=== PATIENT | female | born 1990 | race Caucasian/White ===

== ENCOUNTER → 2016-07-04 | Outpatient (CLI) | payer OTHER | LOC: MW.CHOBGYN 16:33 | PROVIDERS: ATTEND Nurse Practitioner Women's Health | DX: Z34.90 Encounter for supervision of normal pregnancy, unspecified, unspecified trimester (principal) | CPT/HCPCS: 87081 ==

== ENCOUNTER 2016-08-04 15:57 | Inpatient (IN) | payer OTHER ==
[2016-08-04] MEDS ORDERED: Sodium Chloride 0.9% 10 ML Syringe FLUSH PRN (18:21)
[2016-08-04] MEDS ORDERED: Sodium Chloride 0.9% 2.5 ML Syringe FLUSH PRN (18:21)
[2016-08-04] MEDS ORDERED: ceFAZolin 2 GM in Premix Bag 1 BAG IV ONE (18:21)
[2016-08-04] MEDS ORDERED: Citric Acid/Sodium Citrate Solution 30 ML Cup PO SCH (18:30)
[2016-08-04] MEDS ORDERED: Ondansetron 4 MG/2 ML SDV ONE (18:32)
[2016-08-04] MEDS ORDERED: Oxytocin 10 Units/1 ML SDV ONE (18:32)
[2016-08-04] MEDS ORDERED: Morphine PF 10 MG/10 ML SDV ONE (18:32)
[2016-08-04] MEDS: Lactated Ringers 1,000 ML IV SCH ×2 (18:35→19:22)
--- NOTE | 2016-08-04 19:06 | PCM.PREANE ---
Preanesthetic Assessment - Anesthesia/Transfusion/Family Hx Anesthesia History: Prior Anesthesia Without Reaction Family History of Anesthesia Reaction: No Intubation History: Unknown - Review of Systems General: No Symptoms Pulmonary: No Symptoms Cardiovascular: No Symptoms Gastrointestinal: No symptoms Neurological: No Symptoms Other: Reports: None - Physical Assessment NPO Status Date: 08/04/16 NPO Status Time: 16:00 (600mL H2O with NST) Height: 5 ft 6 in Weight: 164 lb ASA Class: 2E Mental Status: Alert & Oriented x3 Airway Class: Mallampati = 2 Dentition: Reports: Normal Dentition Thyro-Mental Finger Breadths: 3 Mouth Opening Finger Breadths: 3 ROM/Head Extension: Full Lungs: Clear to auscultation, Normal respiratory effort Cardiovascular: Regular Rate, Regular Rhythm - Lab Values: Laboratory Last Values WBC 12.38 K/uL (4.0-11.0) H 08/04/16 18:29 RBC 4.61 M/uL (4.30-5.90) 08/04/16 18:29 Hgb 13.7 g/dL (12.0-16.0) 08/04/16 18:29 Hct 40.5 % (36.0-46.0) 08/04/16 18:29 MCV 87.9 fL (80.0-98.0) 08/04/16 18:29 MCH 29.7 pg (27.0-32.0) 08/04/16 18:29 MCHC 33.8 g/dL (31.0-37.0) 08/04/16 18:29 RDW Std Deviation 43.8 fl (28.0-62.0) 08/04/16 18:29 RDW Coeff of Jimmie 14 % (11.0-15.0) 08/04/16 18:29 Plt Count 189 K/uL (150-400) 08/04/16 18:29 MPV 10.00 fL (7.40-12.00) 08/04/16 18:29 Nucleated RBC % 0.0 /100WBC 08/04/16 18:29 Nucleated RBCs # 0 K/uL 08/04/16 18:29 - Allergies Allergies/Adverse Reactions: Allergies Allergy/AdvReac Type Severity Reaction Status Date / Time No Known Allergies Allergy Verified 08/04/16 18:20 - Blood Blood Available: No Product(s) Available: None - Anesthesia Plan Free Text/Narrative:: Planned SAB with GETA backup. Pt does have a support services tech with her and ok' d with Dr Muñoz that she be in the room for - she does understand the rules and verbalizes understanding. 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: - Past Surgical History Female Surgical History: Reports: section - SUBSTANCE USE Smoking Status *Q: Never Smoker Second Hand Smoke Exposure: No Recreational Drug Use History: No - CURRENT (IN HOUSE) MEDS Current Meds: Current Medications Citric Acid/Sodium Citrate (Bicitra Solution) 30 ml PO .ONCE TREVER Lactated Ringer's (Ringers, Lactated) 1,000 mls @ 500 mls/hr IV .BOLUS TREVER Last Admin: 08/04/16 18:35 Dose: 500 mls/hr Sodium Chloride (Saline Flush) 10 ml FLUSH ASDIRECTED PRN PRN Reason: Keep Vein Open Sodium Chloride (Saline Flush) 2.5 ml FLUSH ASDIRECTED PRN PRN Reason: Keep Vein Open Discontinued Medications Cefazolin Sodium/Dextrose 2 gm (/ Premix) 50 mls @ 100 mls/hr IV ONETIME ONE Stop: 08/04/16 18:50 Morphine Sulfate (Duramorph Pf) Confirm Administered Dose 10 mg .ROUTE .STK-MED ONE Stop: 08/04/16 18:33 Ondansetron HCl (Zofran) Confirm Administered Dose 4 mg .ROUTE .STK-MED ONE Stop: 08/04/16 18:33 Oxytocin (Pitocin) Confirm Administered Dose 20 unit .ROUTE .STK-MED ONE Stop: 08/04/16 18:33 Preanesthetic Assessment - PHYSICAL ASSESSMENT Height: 5 ft 6 in Weight: 164 lb - LAB Values: Laboratory Last Values WBC 12.38 K/uL (4.0-11.0) H 08/04/16 18:29 RBC 4.61 M/uL (4.30-5.90) 08/04/16 18:29 Hgb 13.7 g/dL (12.0-16.0) 08/04/16 18: Hct 40.5 % (36.0-46.0) 08/04/16 18: MCV 87.9 fL (80.0-98.0) 08/04/16 18: MCH 29.7 pg (27.0-32.0) 08/04/16 18: MCHC 33.8 g/dL (31.0-37.0) 08/04/16 18: RDW Std Deviation 43.8 fl (28.0-62.0) 08/04/16 18: RDW Coeff of Jimmie 14 % (11.0-15.0) 08/04/16 18: Plt Count 189 K/uL (150-400) 08/04/16 18: MPV 10.00 fL (7.40-12.00) 08/04/16 18: Nucleated RBC % 0.0 /100WBC 08/04/16 18: Nucleated RBCs # 0 K/uL 08/04/16 18:29 - ALLERGIES Allergies/Adverse Reactions: Allergies Allergy/AdvReac Type Severity Reaction Status Date / Time No Known Allergies Allergy Verified 08/04/16 18:20
[2016-08-04] MEDS ORDERED: Octyl 2-Cyanoacrylate 1 Tube ONE (19:18)
[2016-08-04] MEDS ORDERED: fentaNYL 100 MCG/2 ML SDV IVPUSH PRN (20:18)
[2016-08-04] MEDS ORDERED: Acetaminophen/oxyCODONE 325-5 MG Tab PO PRN ×3 (20:18→20:44)
[2016-08-04] MEDS ORDERED: Nalbuphine 10 MG/1 ML Vial IVPUSH PRN (20:18)
--- NOTE | 2016-08-04 20:43 | PCM.LDHP ---
L&D History of Present Illness - General Date of Service: 08/04/16 Admit Problem/Dx: Patient Status Order with Admit Dx/Problem 08/04/16 15:59 Patient Status [ADT] Routine 08/04/16 18:21 Patient Status [ADT] Routine Admission Diagnosis/Problem Admission Diagnosis/Problem -related examination Source of Information: Patient History Limitations: Reports: No limitations - History of Present Illness Improves with: Reports: None Worsens with: Reports: None Associated Symptoms: Reports: N - Related Data Allergies/Adverse Reactions: Allergies Allergy/AdvReac Type Severity Reaction Status Date / Time No Known Allergies Allergy Verified 08/04/16 18:20 Past Medical History - Past Health History Medical/Surgical History: Denies 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: - Past Surgical History Female Surgical History: Reports: section Social & Family History - Family History Family Medical History: Noncontributory - Tobacco Use Smoking Status *Q: Never Smoker Second Hand Smoke Exposure: No - Caffeine Use Caffeine Use: Reports: Coffee - Recreational Drug Use Recreational Drug Use: No H&P Review of Systems - Review of Systems: Review Of Systems: See Below General: Reports: no symptoms HEENT: Reports: no symptoms Pulmonary: Reports: No Symptoms Cardiovascular: Reports: no symptoms Gastrointestinal: Reports: No symptoms Genitourinary: Reports: no symptoms Musculoskeletal: Reports: no symptoms Skin: Reports: no symptoms Psychiatric: Reports: no symptoms Neurological: Reports: No Symptoms Hematologic/Lymphatic: Reports: no symptoms Immunologic: Reports: no symptoms L&D Exam - Exam Exam: See Below - Vital Signs Weight: 74.389 kg - OB Specific Fundal Height in cm: 38 Contraction Intensity: Mild movement: active heart tones: present Presentation: Vertex - Patient Data Lab Results last 24 hrs: Laboratory Results - last 24 hr 08/04/16 08/04/16 Range/Units 18:29 18:29 WBC 12.38 H (4.0-11.0) K/uL RBC 4.61 (4.30-5.90) M/uL Hgb 13.7 (12.0-16.0) g/dL Hct 40.5 (36.0-46.0) % MCV 87.9 (80.0-98.0) fL MCH 29.7 (27.0-32.0) pg MCHC 33.8 (31.0-37.0) g/dL RDW Std Deviation 43.8 (28.0-62.0) fl RDW Coeff of Jimmie 14 (11.0-15.0) % Plt Count 189 (150-400) K/uL MPV 10.00 (7.40-12.00) fL Nucleated RBC % 0.0 /100WBC Nucleated RBCs # 0 K/uL Blood Type A NEGATIVE Antibody Screen NEGATIVE Result Diagrams: 08/04/16 18:29 Problem List Initiated/Reviewed/Updated: Yes Orders Last 24hrs: Active Orders 24 hr Category Date Time Status Patient Status [ADT] Routine ADT 08/04/16 18:21 Active Bradycardia-Neuroaxis [employer] [RC] ROUTINE Care 08/04/16 20:18 Active Non Stress Test [RC] PER UNIT ROUTINE Care 08/04/16 18:21 Active Hypertension-Neuroaxis [employer] [RC] ROUTINE Care 08/04/16 20:18 Active Hypotension-Neuroaxis [employer] [RC] ROUTINE Care 08/04/16 20:18 Active Notify Provider Vital Signs [RC] PRN Care 08/04/16 18:22 Active Oxygen Therapy [RC] PER UNIT ROUTINE Care 08/04/16 20:18 Active Procedure Site Prep Instruct [RC] ASDIRECTED Care 08/04/16 18:21 Active Up ad Diana [RC] ASDIRECTED Care 08/04/16 15:59 Active Up ad Diana [RC] ASDIRECTED Care 08/04/16 18:21 Active Verify Patient Consent Obtain [RC] ASDIRECTED Care 08/04/16 18:21 Active Vital Signs [RC] PER UNIT ROUTINE Care 08/04/16 15:59 Active Vital Signs [RC] PER UNIT ROUTINE Care 08/04/16 18:21 Active Vital Signs [RC] Q1H Care 08/04/16 20:18 Active Acetaminophen/oxyCODONE [Percocet 325-5 MG] Med 08/04/16 20:18 Active 2 tab PO ONETIME PRN Citric Acid/Sodium Citrate [Bicitra Solution] Med 08/04/16 18:30 Active 30 ml PO .ONCE Lactated Ringers [Ringers, Lactated] 1,000 ml Med 08/04/16 18:30 Active IV .BOLUS Nalbuphine [Nubain] Med 08/04/16 20:18 Active 2.5 mg IVPUSH Q3H PRN Sodium Chloride 0.9% [Saline Flush] Med 08/04/16 18:21 Active 10 ml FLUSH ASDIRECTED PRN Sodium Chloride 0.9% [Saline Flush] Med 08/04/16 18:21 Active 2.5 ml FLUSH ASDIRECTED PRN fentaNYL [Sublimaze] Med 08/04/16 20:18 Active 50 mcg IVPUSH Q5M PRN AN Neuroaxis [employer] Precaution Reflex [OM.PC] PER Oth 08/04/16 20:30 Ordered UNIT ROUTINE AN Neuroaxis [employer] Precaution Reflex [OM.PC] PER Oth 08/05/16 20:30 Ordered UNIT ROUTINE Peripheral IV Insertion Adult [OM.PC] Routine Oth 08/04/16 18:21 Ordered Schedule Procedure [COMM] Per Unit Routine Oth 08/04/16 18:21 Ordered Resuscitation Status Routine Resus Stat 08/04/16 15:59 Ordered Medication Orders Citric Acid/Sodium Citrate (Bicitra Solution) 30 ml PO .ONCE TREVER Fentanyl (Sublimaze) 50 mcg IVPUSH Q5M PRN PRN Reason: Pain (severe 7-10) Stop: 08/05/16 20:19 Lactated Ringer's (Ringers, Lactated) 1,000 mls @ 500 mls/hr IV .BOLUS TREVER Last Admin: 08/04/16 19:22 Dose: 500 mls/hr Infusion: 08/04/16 19:22 Dose: 500 mls/hr Admin: 08/04/16 18:35 Dose: 500 mls/hr Nalbuphine HCl (Nubain) 2.5 mg IVPUSH Q3H PRN PRN Reason: Pruritis Stop: 08/05/16 20:19 Oxycodone/Acetaminophen (Percocet 325-5 Mg) 2 tab PO ONETIME PRN PRN Reason: Pain (moderate 4-6) Sodium Chloride (Saline Flush) 10 ml FLUSH ASDIRECTED PRN PRN Reason: Keep Vein Open Sodium Chloride (Saline Flush) 2.5 ml FLUSH ASDIRECTED PRN PRN Reason: Keep Vein Open Assessment/Plan Comment:: Admit for elective repear C/section.
[2016-08-04] MEDS ORDERED: Ondansetron 4 MG/2 ML SDV IV PRN (20:44)
[2016-08-04] MEDS ORDERED: Ibuprofen 800 MG Tab PO PRN (20:44)
[2016-08-04] MEDS ORDERED: Lanolin 100% Cream 7 GM Tube TOP PRN (20:44)
[2016-08-04] MEDS ORDERED: Bisacodyl 10 MG Supp RECTAL PRN (20:44)
[2016-08-04] MEDS ORDERED: diphenhydrAMINE 50 MG/ML SDV IVPUSH PRN (20:44)
--- NOTE | 2016-08-04 20:44 | PCM.OPNOTE ---
- General Post-Op/Procedure Note Date of Surgery/Procedure: 08/04/16 Pre Op Diagnosis: Term elective repeat C/section Post-Op Diagnosis: Same Primary Surgeon: Tip Muñoz Complications: None Condition: Good
[2016-08-04] MEDS ORDERED: Lactated Ringers 1,000 ML IV SCH (20:45)
[2016-08-04] MEDS ORDERED: Naloxone 0.4 MG/ML Syringe IVPUSH PRN (20:54)
[2016-08-04] MEDS: Ketorolac 30 MG/ML SDV IVPUSH SCH (21:05)
--- NOTE | 2016-08-04 21:07 | PCM.POSTAN ---
POST ANESTHESIA ASSESSMENT - MENTAL STATUS Mental Status: alert, oriented - RESPIRATORY Respiratory Status: respiratory rate WNL, airway patent, O2 saturation stable - CARDIOVASCULAR CV Status: pulse rate WNL, blood pressure stable - GASTROINTESTINAL GI Status: no symptoms - PAIN Pain Score: 2 ("slightly uncomfortable") - POST OP HYDRATION Hydration Status: adequate & stable - OBSERVATIONS Free Text/Narrative:: Pt currently in PACU. VSS. Stable for discharge to Phase II on OB when appropriate.
[2016-08-04] MEDS: Docusate Sodium 100 MG Cap PO SCH (23:13)
--- NOTE | 2016-08-04 23:18 | OR ---
SURGEON: Tip Muñoz MD DATE OF PROCEDURE: PREOPERATIVE DIAGNOSIS: Postdate , almost 41 weeks, previous cesarian section, nonreassuring nonstress test. POSTOPERATIVE DIAGNOSIS: Postdate , almost 41 weeks, previous cesarian section, nonreassuring nonstress test. OPERATION PERFORMED: Repeat low transverse section. PRESIDENT FINANCIAL INSTITUTION/ASSISTANT CHIEF TRAIN DISPATCHER: Dr. Swift. ANESTHESIA: Spinal. ANESTHESIOLOGIST: Gerri Maravilla and Dr. Pierson. ESTIMATED BLOOD LOSS: 700 mL. COMPLICATIONS: None. FINDINGS: Female fetus. score reported to be 9 and 9. The weight is not available at this time. INDICATION: Patient primarily is being followed by our nurse vamp liner. She had previous section for breech. She was going to try for vaginal , however, she became postdate with no evidence of labor. I saw her in the office today and she is scheduled for repeat section next Thursday on August 08. The patient is sent for nonstress test and nonstress test shows a nonreassuring nonstress test. tachycardia and some variable deceleration, so a decision was made to repeat her section today. PROCEDURE IN DETAIL: The patient was brought to the OR, properly identified. After adequate level of spinal anesthesia with a Willoughby catheter in the bladder. The patient prepped and draped in sterile fashion as usual. Low transverse Pfannenstiel skin incision was done. The Rowdy's fascia, rectus fascia was opened in direction of the incision. The 2 recti muscles were and peritoneal cavity was entered. Bladder flap was raised in the usual manner pushing the bladder away from the lower uterine segment. Low transverse uterine incision done and extended manually and fetus was delivered. Dr. Swift attended the section and he resuscitated the baby. The score reported to be 9 and 9. The placenta delivered spontaneous, complete, and intact. End to end repair of the lower uterine segment was done with 2-0 Vicryl continuous interlocking in 2 layers. Reperitonealization done with 3-0 Vicryl continuous and then the peritoneal cavity evacuated completely from all blood and blood clot and closed with 3-0 Vicryl continuous. The rectus fascia closed with #1 PDS continuous and the Rowdy's fascia with 3-0 Vicryl continuous and skin was closed with skin clips, Insorb, and Dermabond. Instrument and sponge count was correct. The patient tolerated the procedure well, went to recovery room in stable general condition. CHARLIE PALACIOS /[id number]
[2016-08-05] MEDS: Ketorolac 30 MG/ML SDV IVPUSH SCH ×4 (02:55→21:02)
--- NOTE | 2016-08-05 08:12 | PCM48HPAN ---
Post Anesthesia Note - EVALUATION WITHIN 48HRS OF ANESTHETIC Vital Signs in Normal Range: Yes Patient Participated in Evaluation: Yes Respiratory Function Stable: Yes Airway Patent: Yes Cardiovascular Function Stable: Yes Hydration Status Stable: Yes Pain Control Satisfactory: Yes Nausea and Vomiting Control Satisfactory: Yes Mental Status Recovered: Yes - COMMENTS/OBSERVATIONS Free Text/Narrative:: Pt sitting up in bed this AM and states pain well controlled overnight and no nausea or pruritis. No apparent anesthesia complications.
[2016-08-05] MEDS: Docusate Sodium 100 MG Cap PO SCH ×2 (09:03→21:03)
--- NOTE | 2016-08-05 12:52 | PCM.PNPP ---
- General Info Date of Service: 08/05/16 Functional Status: Reports: pain controlled - Review of Systems General: Reports: No Symptoms HEENT: Reports: no symptoms Pulmonary: Reports: no symptoms Cardiovascular: Reports: No Symptoms Gastrointestinal: Reports: No symptoms Genitourinary: Reports: no symptoms Musculoskeletal: Reports: no symptoms Skin: Reports: no symptoms Neurological: Reports: No Symptoms Psychiatric: Reports: no symptoms - General Info Date of Service: 08/05/16 - Patient Data Vital Signs - most recent: Last Vital Signs Temp 36.6 C 08/05/16 07:45 Pulse 86 08/05/16 10:00 Resp 18 08/05/16 10:00 BP 109/69 08/05/16 07:45 Pulse Ox 92 L 08/05/16 10:00 Weight - most recent: 74.389 kg I&O - last 24 hours: Intake & Output 08/04/16 08/05/16 08/05/16 22:59 06:59 14:59 Intake Total 1950 1604 Output Total 800 1440 745 Balance 1150 164 -745 Lab Results - last 24 hrs: Laboratory Results - last 24 hr 08/04/16 08/04/16 08/04/16 Range/Units 18:29 18:29 22:37 WBC 12.38 H (4.0-11.0) K/uL RBC 4.61 (4.30-5.90) M/uL Hgb 13.7 (12.0-16.0) g/dL Hct 40.5 (36.0-46.0) % MCV 87.9 (80.0-98.0) fL MCH 29.7 (27.0-32.0) pg MCHC 33.8 (31.0-37.0) g/dL RDW Std Deviation 43.8 (28.0-62.0) fl RDW Coeff of Jimmie 14 (11.0-15.0) % Plt Count 189 (150-400) K/uL MPV 10.00 (7.40-12.00) fL Nucleated RBC % 0.0 /100WBC Nucleated RBCs # 0 K/uL Blood Type A NEGATIVE Antibody Screen NEGATIVE Screen NEGATIVE RhIG Candidate? YES Rhogam Indicated YES, BABY RH POS H 08/05/16 Range/Units 06:10 WBC (4.0-11.0) K/uL RBC (4.30-5.90) M/uL Hgb 12.4 (12.0-16.0) g/dL Hct 35.7 L (36.0-46.0) % MCV (80.0-98.0) fL MCH (27.0-32.0) pg MCHC (31.0-37.0) g/dL RDW Std Deviation (28.0-62.0) fl RDW Coeff of Jimmie (11.0-15.0) % Plt Count (150-400) K/uL MPV (7.40-12.00) fL Nucleated RBC % /100WBC Nucleated RBCs # K/uL Blood Type Antibody Screen Screen RhIG Candidate? Rhogam Indicated Med Orders - Current: Current Medications Bisacodyl (Dulcolax) 10 mg RECTAL .ONCE PRN PRN Reason: Constipation Citric Acid/Sodium Citrate (Bicitra Solution) 30 ml PO .ONCE TREVER Diphenhydramine HCl (Benadryl) 25 mg IVPUSH Q6H PRN PRN Reason: Itching or Nausea Docusate Sodium (Colace) 100 mg PO BID [facility] Last Admin: 08/05/16 09:03 Dose: 100 mg Emollient Ointment (Lansinoh Hpa) 0 gm TOP ASDIRECTED PRN PRN Reason: Sore Nipples Fentanyl (Sublimaze) 50 mcg IVPUSH Q5M PRN PRN Reason: Pain (severe 7-10) Stop: 08/05/16 20:19 Last Admin: 08/05/16 00:25 Dose: 50 mcg Lactated Ringer's (Ringers, Lactated) 1,000 mls @ 500 mls/hr IV .BOLUS [facility] Last Admin: 08/04/16 19:22 Dose: 500 mls/hr Lactated Ringer's (Ringers, Lactated) 1,000 mls @ 125 mls/hr IV ASDIRECTED [facility] Last Admin: 08/04/16 22:45 Dose: 125 mls/hr Ibuprofen (Motrin) 800 mg PO Q8H PRN PRN Reason: mild pain or fever Ketorolac Tromethamine (Toradol) 30 mg IVPUSH Q6H [facility] Stop: 08/05/16 20:46 Last Admin: 08/05/16 09:04 Dose: 30 mg Nalbuphine HCl (Nubain) 2.5 mg IVPUSH Q3H PRN PRN Reason: Pruritis Stop: 08/05/16 20:19 Naloxone HCl (Narcan) 0.1 mg IVPUSH ONETIME PRN PRN Reason: If RR<6 WITH STIMULATION Stop: 08/05/16 20:00 Ondansetron HCl (Zofran) 4 mg IV Q4H PRN PRN Reason: Nausea/Vomiting Oxycodone/Acetaminophen (Percocet 325-5 Mg) 2 tab PO ONETIME PRN PRN Reason: Pain (moderate 4-6) Oxycodone/Acetaminophen (Percocet 325-5 Mg) 1 tab PO Q4H PRN PRN Reason: Pain (moderate 4-6) Oxycodone/Acetaminophen (Percocet 325-5 Mg) 2 tab PO Q4H PRN PRN Reason: Pain (moderate 4-6) Sodium Chloride (Saline Flush) 10 ml FLUSH ASDIRECTED PRN PRN Reason: Keep Vein Open Sodium Chloride (Saline Flush) 2.5 ml FLUSH ASDIRECTED PRN PRN Reason: Keep Vein Open Discontinued Medications Cefazolin Sodium/Dextrose 2 gm (/ Premix) 50 mls @ 100 mls/hr IV ONETIME ONE Stop: 08/04/16 18:50 Last Admin: 08/04/16 20:19 Dose: Not Given Morphine Sulfate (Duramorph Pf) Confirm Administered Dose 10 mg .ROUTE .STK-MED ONE Stop: 08/04/16 18:33 Octyl Cyanoacrylate (Dermabond Advance) Confirm Administered Dose 1 applic .ROUTE .STK-MED ONE Stop: 08/04/16 19:19 Ondansetron HCl (Zofran) Confirm Administered Dose 4 mg .ROUTE .STK-MED ONE Stop: 08/04/16 18:33 Oxytocin (Pitocin) Confirm Administered Dose 20 unit .ROUTE .STK-MED ONE Stop: 08/04/16 18:33 - Interaction Interaction: Holding Infant Infant Feeding: Attempted ; Nursed Fair/Poor Support Person: - Recovery Exam Fundal Tone: Firm Fundal Level: 2 Fingerbreadths Below Umbilicus Fundal Placement: Midline Lochia Amount: Scant Lochia Color: Rubra/Red Perineum Description: Intact, Minimal Bruising/Swelling Episiotomy/Laceration: None Bladder Status: Nonpalpable Urinary Elimination: Indwelling Catheter - Exam General: alert, oriented HEENT: Pupils equal Neck: supple Lungs: Clear to auscultation, Normal respiratory effort Cardiovascular: Regular Rate, Regular Rhythm Abdomen: bowel sounds present, soft, no tenderness, no distension Extremities: no edema Skin: warm, dry, intact Wound/Incisions: healing well Neurological: no new focal deficit Psy/Mental Status: alert, normal affect, normal mood - Problem List Review Problem List Initiated/Reviewed/Updated: Yes - My Orders Last 24 Hours: My Active Orders 08/04/16 15:59 Vital Signs [RC] PER UNIT ROUTINE Resuscitation Status Routine 08/04/16 18:21 Procedure Site Prep Instruct [RC] ASDIRECTED Up ad Diana [RC] ASDIRECTED Verify Patient Consent Obtain [RC] ASDIRECTED Vital Signs [RC] PER UNIT ROUTINE Sodium Chloride 0.9% [Saline Flush] 10 ml FLUSH ASDIRECTED PRN Sodium Chloride 0.9% [Saline Flush] 2.5 ml FLUSH ASDIRECTED PRN Peripheral IV Insertion Adult [OM.PC] Routine Schedule Procedure [COMM] Per Unit Routine 08/04/16 18:22 Notify Provider Vital Signs [RC] PRN 08/04/16 18:30 Citric Acid/Sodium Citrate [Bicitra Solution] 30 ml PO .ONCE Lactated Ringers [Ringers, Lactated] 1,000 ml IV .BOLUS 08/04/16 20:44 Patient Status [ADT] Routine Ambulate [RC] PER UNIT ROUTINE Communication Order [RC] PER UNIT ROUTINE Communication Order [RC] PER UNIT ROUTINE Communication Order [RC] Per Unit Routine May Shower [RC] ASDIRECTED RT Incentive Spirometry [RC] Q2HWA Vital Signs [RC] PER UNIT ROUTINE Acetaminophen/oxyCODONE [Percocet 325-5 MG] 1 tab PO Q4H PRN Acetaminophen/oxyCODONE [Percocet 325-5 MG] 2 tab PO Q4H PRN Bisacodyl [Dulcolax] 10 mg RECTAL .ONCE PRN Ibuprofen [Motrin] 800 mg PO Q8H PRN Lanolin [Lansinoh HPA] See Dose Instructions TOP ASDIRECTED PRN Ondansetron [Zofran] 4 mg IV Q4H PRN diphenhydrAMINE [Benadryl] 25 mg IVPUSH Q6H PRN Assess Lochia [WOMSER] Per Unit Routine Assess Uterine Involution [WOMSER] Per Unit Routine Breast Pump [WOMSER] Per Unit Routine Peripheral IV Discontinue [OM.PC] Routine Sequential Compression Device [OM.PC] Per Unit Routine 08/04/16 20:45 Antiembolic Devices [RC] PER UNIT ROUTINE Ketorolac [Toradol] 30 mg IVPUSH Q6H Lactated Ringers [Ringers, Lactated] 1,000 ml IV ASDIRECTED 08/04/16 21:00 Docusate Sodium [Colace] 100 mg PO BID 08/05/16 Breakfast Regular Diet [DIET] - Plan Plan:: Admit for elective repear C/section.
[2016-08-06] MEDS: Docusate Sodium 100 MG Cap PO SCH (08:17)
--- NOTE | 2016-08-06 08:30 | PCM.PNPP ---
- General Info Date of Service: 08/06/16 Functional Status: Reports: pain controlled - Review of Systems General: Reports: No Symptoms HEENT: Reports: no symptoms Pulmonary: Reports: no symptoms Cardiovascular: Reports: No Symptoms Gastrointestinal: Reports: No symptoms Genitourinary: Reports: no symptoms Musculoskeletal: Reports: no symptoms Skin: Reports: no symptoms Neurological: Reports: No Symptoms Psychiatric: Reports: no symptoms - General Info Date of Service: 08/06/16 - Patient Data Vital Signs - most recent: Last Vital Signs Temp 36.4 C 08/06/16 04:30 Pulse 82 08/06/16 04:30 Resp 16 08/06/16 04:30 BP 117/70 08/06/16 04:30 Pulse Ox 94 L 08/06/16 04:30 Weight - most recent: 74.389 kg I&O - last 24 hours: Intake & Output 08/05/16 08/06/16 08/06/16 22:59 06:59 14:59 Output Total 900 Balance -900 Med Orders - Current: Current Medications Bisacodyl (Dulcolax) 10 mg RECTAL .ONCE PRN PRN Reason: Constipation Citric Acid/Sodium Citrate (Bicitra Solution) 30 ml PO .ONCE TREVER Diphenhydramine HCl (Benadryl) 25 mg IVPUSH Q6H PRN PRN Reason: Itching or Nausea Docusate Sodium (Colace) 100 mg PO BID [facility] Last Admin: 08/06/16 08:17 Dose: 100 mg Emollient Ointment (Lansinoh Hpa) 0 gm TOP ASDIRECTED PRN PRN Reason: Sore Nipples Lactated Ringer's (Ringers, Lactated) 1,000 mls @ 500 mls/hr IV .BOLUS [facility] Last Admin: 08/04/16 19:22 Dose: 500 mls/hr Lactated Ringer's (Ringers, Lactated) 1,000 mls @ 125 mls/hr IV ASDIRECTED [facility] Last Admin: 08/04/16 22:45 Dose: 125 mls/hr Ibuprofen (Motrin) 800 mg PO Q8H PRN PRN Reason: mild pain or fever Last Admin: 08/06/16 04:44 Dose: 800 mg Ondansetron HCl (Zofran) 4 mg IV Q4H PRN PRN Reason: Nausea/Vomiting Oxycodone/Acetaminophen (Percocet 325-5 Mg) 2 tab PO ONETIME PRN PRN Reason: Pain (moderate 4-6) Oxycodone/Acetaminophen (Percocet 325-5 Mg) 1 tab PO Q4H PRN PRN Reason: Pain (moderate 4-6) Oxycodone/Acetaminophen (Percocet 325-5 Mg) 2 tab PO Q4H PRN PRN Reason: Pain (moderate 4-6) Sodium Chloride (Saline Flush) 10 ml FLUSH ASDIRECTED PRN PRN Reason: Keep Vein Open Sodium Chloride (Saline Flush) 2.5 ml FLUSH ASDIRECTED PRN PRN Reason: Keep Vein Open Discontinued Medications Fentanyl (Sublimaze) 50 mcg IVPUSH Q5M PRN PRN Reason: Pain (severe 7-10) Stop: 08/05/16 20:19 Last Admin: 08/05/16 00:25 Dose: 50 mcg Cefazolin Sodium/Dextrose 2 gm (/ Premix) 50 mls @ 100 mls/hr IV ONETIME ONE Stop: 08/04/16 18:50 Last Admin: 08/04/16 20:19 Dose: Not Given Ketorolac Tromethamine (Toradol) 30 mg IVPUSH Q6H TREVER Stop: 08/05/16 20:46 Last Admin: 08/05/16 21:02 Dose: 30 mg Morphine Sulfate (Duramorph Pf) Confirm Administered Dose 10 mg .ROUTE .STK-MED ONE Stop: 08/04/16 18:33 Nalbuphine HCl (Nubain) 2.5 mg IVPUSH Q3H PRN PRN Reason: Pruritis Stop: 08/05/16 20:19 Naloxone HCl (Narcan) 0.1 mg IVPUSH ONETIME PRN PRN Reason: If RR<6 WITH STIMULATION Stop: 08/05/16 20:00 Octyl Cyanoacrylate (Dermabond Advance) Confirm Administered Dose 1 applic .ROUTE .STK-MED ONE Stop: 08/04/16 19:19 Ondansetron HCl (Zofran) Confirm Administered Dose 4 mg .ROUTE .STK-MED ONE Stop: 08/04/16 18:33 Oxytocin (Pitocin) Confirm Administered Dose 20 unit .ROUTE .STK-MED ONE Stop: 08/04/16 18:33 - Interaction Infant Interaction: Holding Feeding: Attempted ; Nursed Fair/Poor Support Person: - Recovery Exam Fundal Tone: Firm Fundal Level: 2 Fingerbreadths Below Umbilicus Fundal Placement: Midline Lochia Amount: Scant Lochia Color: Rubra/Red Perineum Description: Intact, Minimal Bruising/Swelling Episiotomy/Laceration: None Bladder Status: Voiding Urinary Elimination: Indwelling Catheter - Exam General: alert, oriented HEENT: Pupils equal Neck: supple Lungs: Clear to auscultation, Normal respiratory effort Cardiovascular: Regular Rate, Regular Rhythm Abdomen: bowel sounds present, soft, no tenderness, no distension Extremities: no edema Skin: warm, dry, intact Wound/Incisions: healing well Neurological: no new focal deficit Psy/Mental Status: alert, normal affect, normal mood - Problem List Review Problem List Initiated/Reviewed/Updated: Yes - Assessment Assessment:: Status post section postoperative day #2 the patient like to go home her incision clean dry she is on regular diet she is passing gas she is voiding without any problem her vital sign was stable. The patient sent home with post prescription for Percocet 7.5/325 for postoperative pain the patient come to the office in 7-10 days for postoperative examination and check - Plan Plan:: Admit for elective repear C/section.
--- NOTE | 2016-08-06 08:31 | PCM.DCSUM1 ---
Discharge Summary - Discharge Data Discharge Date: 08/06/16 Discharge Disposition: Home, Self-Care 01 Condition: Good - Patient Instructions Diet: Usual Diet as Tolerated Activity: As Tolerated Driving: Do Not Drive Showering/Bathing: May Shower Wound/Incision Care: Keep Operative Site/Wound Site Clean and Dry, Do NOT Change Dressing Notify Provider of: Fever, Increased Pain, Swelling and Redness, Drainage, Nausea and/or Vomiting - Discharge Plan - General Info Date of Service: 08/06/16 Functional Status: Reports: pain controlled - Review of Systems General: Reports: No Symptoms HEENT: Reports: no symptoms Pulmonary: Reports: no symptoms Cardiovascular: Reports: No Symptoms Gastrointestinal: Reports: No symptoms Genitourinary: Reports: no symptoms Musculoskeletal: Reports: no symptoms Skin: Reports: no symptoms Neurological: Reports: No Symptoms Psychiatric: Reports: no symptoms - Patient Data Vitals - Most Recent: Last Vital Signs Temp 36.4 C 08/06/16 04:30 Pulse 82 08/06/16 04:30 Resp 16 08/06/16 04:30 BP 117/70 08/06/16 04:30 Pulse Ox 94 L 08/06/16 04:30 Weight - Most Recent: 74.389 kg I&O - Last 24 hours: Intake & Output 08/05/16 08/06/16 08/06/16 22:59 06:59 14:59 Output Total 900 Balance -900 Med Orders - Current: Current Medications Bisacodyl (Dulcolax) 10 mg RECTAL .ONCE PRN PRN Reason: Constipation Citric Acid/Sodium Citrate (Bicitra Solution) 30 ml PO .ONCE TREVER Diphenhydramine HCl (Benadryl) 25 mg IVPUSH Q6H PRN PRN Reason: Itching or Nausea Docusate Sodium (Colace) 100 mg PO BID TREVER Last Admin: 08/06/16 08:17 Dose: 100 mg Emollient Ointment (Lansinoh Hpa) 0 gm TOP ASDIRECTED PRN PRN Reason: Sore Nipples Lactated Ringer's (Ringers, Lactated) 1,000 mls @ 500 mls/hr IV .BOLUS TREVER Last Admin: 08/04/16 19:22 Dose: 500 mls/hr Lactated Ringer's (Ringers, Lactated) 1,000 mls @ 125 mls/hr IV ASDIRECTED TREVER Last Admin: 08/04/16 22:45 Dose: 125 mls/hr Ibuprofen (Motrin) 800 mg PO Q8H PRN PRN Reason: mild pain or fever Last Admin: 08/06/16 04:44 Dose: 800 mg Ondansetron HCl (Zofran) 4 mg IV Q4H PRN PRN Reason: Nausea/Vomiting Oxycodone/Acetaminophen (Percocet 325-5 Mg) 2 tab PO ONETIME PRN PRN Reason: Pain (moderate 4-6) Oxycodone/Acetaminophen (Percocet 325-5 Mg) 1 tab PO Q4H PRN PRN Reason: Pain (moderate 4-6) Oxycodone/Acetaminophen (Percocet 325-5 Mg) 2 tab PO Q4H PRN PRN Reason: Pain (moderate 4-6) Sodium Chloride (Saline Flush) 10 ml FLUSH ASDIRECTED PRN PRN Reason: Keep Vein Open Sodium Chloride (Saline Flush) 2.5 ml FLUSH ASDIRECTED PRN PRN Reason: Keep Vein Open Discontinued Medications Fentanyl (Sublimaze) 50 mcg IVPUSH Q5M PRN PRN Reason: Pain (severe 7-10) Stop: 08/05/16 20:19 Last Admin: 08/05/16 00:25 Dose: 50 mcg Cefazolin Sodium/Dextrose 2 gm (/ Premix) 50 mls @ 100 mls/hr IV ONETIME ONE Stop: 08/04/16 18:50 Last Admin: 08/04/16 20:19 Dose: Not Given Ketorolac Tromethamine (Toradol) 30 mg IVPUSH Q6H [facility] Stop: 08/05/16 20:46 Last Admin: 08/05/16 21:02 Dose: 30 mg Morphine Sulfate (Duramorph Pf) Confirm Administered Dose 10 mg .ROUTE .STK-MED ONE Stop: 08/04/16 18:33 Nalbuphine HCl (Nubain) 2.5 mg IVPUSH Q3H PRN PRN Reason: Pruritis Stop: 08/05/16 20:19 Naloxone HCl (Narcan) 0.1 mg IVPUSH ONETIME PRN PRN Reason: If RR<6 WITH STIMULATION Stop: 08/05/16 20:00 Octyl Cyanoacrylate (Dermabond Advance) Confirm Administered Dose 1 applic .ROUTE .STK-MED ONE Stop: 08/04/16 19:19 Ondansetron HCl (Zofran) Confirm Administered Dose 4 mg .ROUTE .STK-MED ONE Stop: 08/04/16 18:33 Oxytocin (Pitocin) Confirm Administered Dose 20 unit .ROUTE .STK-MED ONE Stop: 08/04/16 18:33 - Exam General: Reports: alert, oriented HEENT: Reports: Pupils equal, Pupils reactive, EOMI, Mucous membr. moist/pink Neck: Reports: supple Lungs: Reports: Clear to auscultation, Normal respiratory effort Cardiovascular: Reports: Regular Rate, Regular Rhythm Abdomen: Reports: bowel sounds present, soft, no tenderness, no distension (Female) Exam: Normal external exam, Normal speculum exam, Normal bimanual exam Rectal (Female) Exam: Normal Exam, Normal rectal tone Back Exam: Reports: normal inspection, full range of motion Extremities: Reports: no edema, normal pulses Skin: Reports: warm, dry, intact Wound/Incisions: Reports: healing well Neurological: Reports: no new focal deficit Psy/Mental Status: Reports: alert, normal affect, normal mood *Q Meaningful Use (DIS) - VTE *Q VTE Criteria *Q: - Stroke *Q Stroke Criteria *Q: - AMI *Q AMI Criteria *Q:
[2016-08-06 09:03] VITALS: BP 125/77
== END 2016-08-06 12:08 | disposition home or self-care (01) | DRG 766 ==
LOC: MW.OBCHECK 15:57 → MW.OB 18:15 → OBSVTOIN 18:21
PROVIDERS: ADMIT Obstetrics & Gynecology; ATTEND Obstetrics & Gynecology
PROC: 10D00Z1 Extraction of Products of Conception, Low, Open Approach (ICD-10-PCS; principal; 2016-08-04)
DX: O76 Abnormality in fetal heart rate and rhythm complicating labor and delivery (principal); O48.0 Post-term pregnancy; Z3A.41 41 weeks gestation of pregnancy; Z37.0 Single live birth
CPT/HCPCS: 01961; 36415; 59025; 85014; 85018; 85027; 85460; 86850; 86900; 86901; A9270-GY; J1885; J2270; J2405; J2590; J2790; J3010; J7120

== ENCOUNTER 2017-07-28 06:57 | Emergency (ER) | payer OTHER ==
--- NOTE | 2017-07-28 07:05 | EDM.PDOC ---
ED HPI GENERAL MEDICAL PROBLEM - General Chief Complaint: Neurological Problem Stated Complaint: SEIZURE Time Seen by Provider: 07/28/17 06:58 Source of Information: Reports: Patient History Limitations: Reports: No Limitations - History of Present Illness INITIAL COMMENTS - FREE TEXT/NARRATIVE: History of present illness: []Patient was asleep when her apparently witnessed her having some seizure and called 911. She was brought in awake and alert but disoriented to time and complaining of a headache. Patient has not had a seizure in the past denies any medications, illicit drug use, family history of seizures or recent trauma. Review of systems: As per history of present illness and below otherwise all systems reviewed and negative. Past medical history: As per history of present illness and as reviewed below otherwise noncontributory. Surgical history: As per history of present illness and as reviewed below otherwise noncontributory. Social history: No reported history of drug or alcohol abuse. Family history: As per history of present illness and as reviewed below otherwise noncontributory. Physical exam: General: Well developed, well nourished in NAD HEENT: Atraumatic, normocephalic, pupils reactive, negative for conjunctival pallor or scleral icterus, mucous membranes moist, throat clear, neck supple, nontender, trachea midline. Lungs: Clear to auscultation, breath sounds equal bilaterally, chest nontender. Heart: S1S2, regular, negative for clicks, rubs, or JVD. Abdomen: Soft, nondistended, nontender. Negative for masses or hepatosplenomegaly. Negative for costovertebral tenderness. Pelvis: Stable nontender. Genitourinary: Deferred. Rectal: Deferred. Extremities: Atraumatic, negative for cords or calf pain. Neurovascular unremarkable. Neuro: Awake, alert, oriented. Cranial nerves II through XII unremarkable. Cerebellum unremarkable. Motor and sensory unremarkable throughout. Exam nonfocal. Diagnostics: []CT head negative, chemistries negative, CBC negative negative, UA contaminated Therapeutics: [] Impression: [] New onset seizure Plan: []Follow-up with Dr. Ansari Definitive disposition and diagnosis as appropriate pending reevaluation and review of above. headache Pain Score (Numeric/FACES): 5 - Related Data Allergies Allergy/AdvReac Type Severity Reaction Status Date / Time No Known Allergies Allergy Verified 07/28/17 06:59 Home Meds: Home Meds . [No Known Home Meds] 07/28/17 [History] Past Medical History - Past Health History Medical/Surgical History: Denies Medical/Surgical History ST[employer]ED [employer] History: Reports: - Past Surgical History Female Surgical History: Reports: Section Social & Family History - Family History Family Medical History: Noncontributory - Tobacco Use Smoking Status *Q: Never Smoker Second Hand Smoke Exposure: No - Caffeine Use Caffeine Use: Reports: Coffee - Recreational Drug Use Recreational Drug Use: No ED ROS GENERAL - Review of Systems Review Of Systems: See Below (The history of present illness) - Physical Exam Exam: See Below (See history of present illness) Course - Vital Signs Last Recorded V/S: Last Vital Signs Temp 98.5 F 07/28/17 07:06 Pulse 97 07/28/17 08:14 Resp 18 07/28/17 08:14 BP 114/73 07/28/17 08:14 Pulse Ox 100 07/28/17 08:14 - Orders/Labs/Meds Orders: Active Orders 24 hr Category Date Time Status Head wo Cont [CT] Stat Exams 07/28/17 07:20 Taken HCG QUALITATIVE,URINE [URCHEM] Stat Lab 07/28/17 07:30 Ordered UA W/MICROSCOPIC [URIN] Stat Lab 07/28/17 07:30 Ordered Sodium Chloride 0.9% [Saline Flush] Med 07/28/17 07:20 Active 10 ml FLUSH ASDIRECTED PRN Sodium Chloride 0.9% [Saline Flush] Med 07/28/17 07:20 Active 2.5 ml FLUSH ASDIRECTED PRN Saline Lock Insert [OM.PC] Stat Oth 07/28/17 07:20 Ordered Medication Orders Sodium Chloride (Saline Flush) 10 ml FLUSH ASDIRECTED PRN PRN Reason: Keep Vein Open Sodium Chloride (Saline Flush) 2.5 ml FLUSH ASDIRECTED PRN PRN Reason: Keep Vein Open Labs: Laboratory Tests 07/28/17 07/28/17 07/28/17 Range/Units 07:30 07:30 07:33 WBC 16.16 H (4.0-11.0) K/uL RBC 5.28 (4.30-5.90) M/uL Hgb 15.2 (12.0-16.0) g/dL Hct 44.5 (36.0-46.0) % MCV 84.3 (80.0-98.0) fL MCH 28.8 (27.0-32.0) pg MCHC 34.2 (31.0-37.0) g/dL RDW Std Deviation 39.2 (28.0-62.0) fl RDW Coeff of Jimmie 13 (11.0-15.0) % Plt Count 275 (150-400) K/uL MPV 9.20 (7.40-12.00) fL Neut % (Auto) 83.6 H (48.0-80.0) % Lymph % (Auto) 11.3 L (16.0-40.0) % Gem % (Auto) 4.9 (0.0-15.0) % Eos % (Auto) 0.1 (0.0-7.0) % Baso % (Auto) 0.1 (0.0-1.5) % Neut # (Auto) 13.5 H (1.4-5.7) K/uL Lymph # (Auto) 1.8 (0.6-2.4) K/uL Gem # (Auto) 0.8 (0.0-0.8) K/uL Eos # (Auto) 0.0 (0.0-0.7) K/uL Baso # (Auto) 0.0 (0.0-0.1) K/uL Nucleated RBC % 0.0 /100WBC Nucleated RBCs # 0 K/uL Sodium (136-145) mmol/L Potassium (3.5-5.1) mmol/L Chloride (98-107) mmol/L Carbon Dioxide (21.0-32.0) mmol/L BUN (7.0-18.0) mg/dL Creatinine (0.6-1.0) mg/dL Est Cr Clr Drug Dosing mL/min Estimated GFR (MDRD) ml/min Glucose (74-106) mg/dL Calcium (8.5-10.1) mg/dL Total Bilirubin (0.2-1.0) mg/dL AST (15-37) IU/L ALT (14-63) IU/L Alkaline Phosphatase (46-116) U/L Total Protein (6.4-8.2) g/dL Albumin (3.4-5.0) g/dL Globulin (2.0-3.5) g/dL Albumin/Globulin Ratio (1.3-2.8) Urine Color YELLOW Urine Appearance CLEAR Urine pH 5.5 (5.0-8.0) Ur Specific [place] >= 1.030 (1.001-1.035) Urine Protein NEGATIVE (NEGATIVE) mg/dL Urine Glucose (UA) NEGATIVE (NEGATIVE) mg/dL Urine Ketones TRACE H (NEGATIVE) mg/dL Urine Occult Blood NEGATIVE (NEGATIVE) Urine Nitrite NEGATIVE (NEGATIVE) Urine Bilirubin SMALL H (NEGATIVE) Urine Ictotest NEGATIVE Urine Urobilinogen 0.2 (<2.0) EU/dL Ur Leukocyte Esterase NEGATIVE (NEGATIVE) Urine RBC 1-3 (0-2/HPF) Urine WBC 4-8 (0-5/HPF) Ur Epithelial Cells MODERATE (NONE-FEW) Amorphous Sediment MODERATE (NEGATIVE) Urine Bacteria FEW (NEGATIVE) Urine Mucus LIGHT (NONE-MOD) Urine HCG, Qual NEGATIVE (NEGATIVE) 07/28/17 Range/Units 07:33 WBC (4.0-11.0) K/uL RBC (4.30-5.90) M/uL Hgb (12.0-16.0) g/dL Hct (36.0-46.0) % MCV (80.0-98.0) fL MCH (27.0-32.0) pg MCHC (31.0-37.0) g/dL RDW Std Deviation (28.0-62.0) fl RDW Coeff of Jimmie (11.0-15.0) % Plt Count (150-400) K/uL MPV (7.40-12.00) fL Neut % (Auto) (48.0-80.0) % Lymph % (Auto) (16.0-40.0) % Gem % (Auto) (0.0-15.0) % Eos % (Auto) (0.0-7.0) % Baso % (Auto) (0.0-1.5) % Neut # (Auto) (1.4-5.7) K/uL Lymph # (Auto) (0.6-2.4) K/uL Gem # (Auto) (0.0-0.8) K/uL Eos # (Auto) (0.0-0.7) K/uL Baso # (Auto) (0.0-0.1) K/uL Nucleated RBC % /100WBC Nucleated RBCs # K/uL Sodium 140 (136-145) mmol/L Potassium 3.5 (3.5-5.1) mmol/L Chloride 105 (98-107) mmol/L Carbon Dioxide 26.5 (21.0-32.0) mmol/L BUN 15 (7.0-18.0) mg/dL Creatinine 0.8 (0.6-1.0) mg/dL Est Cr Clr Drug Dosing 87.38 mL/min Estimated GFR (MDRD) > 60.0 ml/min Glucose 108 H (74-106) mg/dL Calcium 9.0 (8.5-10.1) mg/dL Total Bilirubin 0.5 (0.2-1.0) mg/dL AST 25 (15-37) IU/L ALT 25 (14-63) IU/L Alkaline Phosphatase 78 (46-116) U/L Total Protein 7.4 (6.4-8.2) g/dL Albumin 4.1 (3.4-5.0) g/dL Globulin 3.3 (2.0-3.5) g/dL Albumin/Globulin Ratio 1.2 L (1.3-2.8) Urine Color Urine Appearance Urine pH (5.0-8.0) Ur Specific [place] (1.001-1.035) Urine Protein (NEGATIVE) mg/dL Urine Glucose (UA) (NEGATIVE) mg/dL Urine Ketones (NEGATIVE) mg/dL Urine Occult Blood (NEGATIVE) Urine Nitrite (NEGATIVE) Urine Bilirubin (NEGATIVE) Urine Ictotest Urine Urobilinogen (<2.0) EU/dL Ur Leukocyte Esterase (NEGATIVE) Urine RBC (0-2/HPF) Urine WBC (0-5/HPF) Ur Epithelial Cells (NONE-FEW) Amorphous Sediment (NEGATIVE) Urine Bacteria (NEGATIVE) Urine Mucus (NONE-MOD) Urine HCG, Qual (NEGATIVE) Meds: Medications Generic Name Dose Route Start Last Admin Trade Name Freq PRN Reason Stop Dose Admin Sodium Chloride 10 ml 07/28/17 07:20 Saline Flush FLUSH ASDIRECTED PRN Keep Vein Open Sodium Chloride 2.5 ml 07/28/17 07:20 Saline Flush FLUSH ASDIRECTED PRN Keep Vein Open Discontinued Medications Generic Name Dose Route Start Last Admin Trade Name Freq PRN Reason Stop Dose Admin Ketorolac Tromethamine 30 mg 07/28/17 07:40 07/28/17 07:44 Toradol IVPUSH 07/28/17 07:41 30 mg ONETIME ONE Administration Ondansetron HCl 4 mg 07/28/17 07:30 07/28/17 07:34 Zofran IVPUSH 07/28/17 07:31 4 mg ONETIME ONE Administration Departure - Departure Time of Disposition: :08 Disposition: Home, Self-Care 01 Condition: Good Clinical Impression: New onset seizure - Discharge Information Referrals: PCP,None [Primary Care Provider] - Brit Zartae MD [Physician] - Forms: ED Department Discharge Additional Instructions: The following information is given to patients seen in the emergency department who are being discharged to home. This information is to outline your options for follow-up care. We provide all patients seen in our emergency department with a follow-up referral. The need for follow-up, as well as the timing and circumstances, are variable depending upon the specifics of your emergency department visit. If you don't have a primary care physician on staff, we will provide you with a referral. We always advise you to contact your personal physician following an emergency department visit to inform them of the circumstance of the visit and for follow-up with them and/or the need for any referrals to a consulting specialist. The emergency department will also refer you to a specialist when appropriate. This referral assures that you have the opportunity for follow-up care with a specialist. All of these measure are taken in an effort to provide you with optimal care, which includes your follow-up. Under all circumstances we always encourage you to contact your private physician who remains a resource for coordinating your care. When calling for follow-up care, please make the office aware that this follow-up is from your recent emergency room visit. If for any reason you are refused follow-up, please contact the [facility] Emergency Department at and asked to speak to the emergency department charge nurse. Follow-up with Dr. Zarate [facility] - Neurology Professional Building [address] [place] [address], [address] [place] [address] - My Orders Last 24 Hours: My Active Orders 07/28/17 07:20 Head wo Cont [CT] Stat Sodium Chloride 0.9% [Saline Flush] 10 ml FLUSH ASDIRECTED PRN Sodium Chloride 0.9% [Saline Flush] 2.5 ml FLUSH ASDIRECTED PRN Saline Lock Insert [OM.PC] Stat 07/28/17 07:30 HCG QUALITATIVE,URINE [URCHEM] Stat UA W/MICROSCOPIC [URIN] Stat - Assessment/Plan Last 24 Hours: My Active Orders 07/28/17 07:20 Head wo Cont [CT] Stat Sodium Chloride 0.9% [Saline Flush] 10 ml FLUSH ASDIRECTED PRN Sodium Chloride 0.9% [Saline Flush] 2.5 ml FLUSH ASDIRECTED PRN Saline Lock Insert [OM.PC] Stat 07/28/17 07:30 HCG QUALITATIVE,URINE [URCHEM] Stat UA W/MICROSCOPIC [URIN] Stat
[2017-07-28] MEDS ORDERED: Sodium Chloride 0.9% 2.5 ML Syringe FLUSH PRN (07:20)
[2017-07-28] MEDS ORDERED: Sodium Chloride 0.9% 10 ML Syringe FLUSH PRN (07:20)
[2017-07-28] MEDS ORDERED: Ondansetron 4 MG/2 ML SDV IVPUSH ONE (07:30)
[2017-07-28] MEDS ORDERED: Ketorolac 30 MG/ML SDV IVPUSH ONE (07:40)
[2017-07-28 08:08] LABS: CHLORIDE,CL 105 mmol/L (98-107); SODIUM,NA 140 mmol/L (136-145)
[2017-07-28 09:30] VITALS: BP 110/66
--- NOTE | 2017-07-28 09:59 | CT ---
EXAM DATE: 07/28/17 PATIENT'S AGE: 27 Patient: ANNIE BELTRE Facility: [place], [place] Site . Site : 1990 Study: CT Head [id number] 8:06:11 AM Ordering Physician: Brooks Grijalva Final Report: INDICATION: Pain. Seizure-like activity COMPARISON: none TECHNIQUE: A CT volumetric acquisition was performed of the brain without IV contrast. FINDINGS: There is no evidence of a subdural or epidural hematoma. There is no evidence of subarachnoid hemorrhage or intraparenchymal bleeding. The CT images reveal a normal appearance of the cerebral ventricles and basal cisterns. There is no evidence of localized tissue infarction or mass effect. There is normal tatum white matter differentiation. The mastoid air cells and middle ear cavities are clear. The calvarium appears intact. There is normal aeration of the visualized paranasal sinuses. IMPRESSION: Negative head CT. Please note that all CT scans at this facility use dose modulation, iterative reconstruction, and/or weight-based dosing when appropriate to reduce radiation dose to as low as reasonably achievable. Dictated by Aquiles Mejia MD @ Jul 28 2017 8:22AM (Electronic Signature) Report Signed by Proxy. SHANNON
== END 2017-07-28 09:25 | disposition home or self-care (01) ==
LOC: MW.ED 06:57
DX: R56.9 Unspecified convulsions (principal)
CPT/HCPCS: 36415; 70450; 80053; 81001; 81025; 85025; 96374; 96375; 99285; J1885; J2405; 99283

== ENCOUNTER 2017-09-21 18:20 | Emergency (ER) | payer OTHER ==
--- NOTE | 2017-09-21 18:35 | EDM.PDOC ---
ED HPI GENERAL MEDICAL PROBLEM - General Chief Complaint: Neuro Symptoms/Deficits Stated Complaint: SEIZURE Time Seen by Provider: 09/21/17 18:34 Source of Information: Reports: Patient History Limitations: Reports: No Limitations - History of Present Illness INITIAL COMMENTS - FREE TEXT/NARRATIVE: HISTORY AND PHYSICAL: []27-year-old female was presented by EMS after having seizure activity at her house, she is non-witnessed fall. History of Present Illness: []Previously seen by Dr. Zarate on 08/06 new-onset on 07/28 MRI completed on she did see Aure Lobo on 08/11 Review of Systems: As per history of present illness and below otherwise all systems reviewed and negative. Past medical history: As per history of present illness and as reviewed below otherwise noncontributory. Surgical history: As per history of present illness and as reviewed below otherwise noncontributory. Social history: No reported history of drug or alcohol abuse. Family history: As per history of present illness and as reviewed below otherwise noncontributory. Physical exam: It female who is sleeping after admission is at bedside. EKG sinus rhythm at 99 bpm HEENT: Atraumatic, normocehpalic, pupils reactive, negative for conjunctival pallor or scleral icterus, mucous membranes moist, throat clear, neck supple, nontender, trachea midline. Lungs: Clear to auscultation, breath sounds equal bilaterally, chest non tender. Heart: S1S2, regular, negative for clicks, rubs, or JVD. Abdomen: Soft, nondistended, nontender. Negative for masses or hepatossplenmegaly. Negative for costovertebral tenderness. Pelvis: Stable nontender. Genitourinary: Deferred. Rectal: Deferred Extremities: Atraumatic, negative for cords or calf pain. Neurovascular unremarkable. Neuro: Awake, alert, oriented. Cranial nerves II through XII unremarkable. Cerebellum unremarkable. Motor and sensory unremarkable throughout. Exam nonfocal. Discussed the results are negative for head CT scan her lab work is good Have her follow-up with Dr. Elliot chavis antiseizure medication Diagnostics: []Head CT CBC CMP Therapeutics: [] Impression: []Seizure activity Plan: []Discharged home Follow up with Dr. Zarate Return to emergency room as Definitive disposition and diagnosis as appropriate pending reevaluation and review of above. Onset: Today, Sudden Duration: Minutes: Location: Reports: Head - Related Data Allergies Allergy/AdvReac Type Severity Reaction Status Date / Time No Known Allergies Allergy Verified 09/21/17 19:09 Home Meds: Home Meds ALPRAZolam [Alprazolam ODT] 0.5 mg PO ASDIRECTED PRN 09/21/17 [History] Norethindrone [Marcia] 0.35 mg PO DAILY 09/21/17 [History] Past Medical History - Past Health History Medical/Surgical History: Denies Medical/Surgical History HEENT History: Reports: None Cardiovascular History: Reports: None Respiratory History: Reports: None Gastrointestinal History: Reports: None Genitourinary History: Reports: None 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 - Physical Exam Exam: See Below (see dictation) EKG INTERPRETATION EKG Date: 09/21/17 Rhythm: NSR Rate (Beats/Min): 98 Comparison: No Change Course - Vital Signs Last Recorded V/S: Last Vital Signs Temp 36.2 C 09/21/17 18:20 Pulse 99 09/21/17 18:20 Resp 18 09/21/17 18:20 BP 109/51 L 09/21/17 18:20 Pulse Ox 94 L 09/21/17 18:20 - Orders/Labs/Meds Orders: Active Orders 24 hr Category Date Time Status Vaccines to be Administered [RC] PER UNIT ROUTINE Care 09/21/17 20:11 Ordered Head wo Cont [CT] Stat Exams 09/21/17 18:41 Taken COMPREHENSIVE METABOLIC PN,CMP [CHEM] Stat Lab 09/21/17 19:10 Results PROLACTIN [CHEM] Stat Lab 09/21/17 19:10 Results Bacitracin [Bacitracin Oint 1 GM] Med 09/21/17 20:11 Once 1 dose TOP ONETIME ONE Diphth,Pertuss(Acell),Tet Vac [Adacel] Med 09/21/17 20:11 Once 0.5 ml IM .ONCE ONE Medication Orders Bacitracin (Bacitracin Oint 1 Gm) 1 dose TOP ONETIME ONE Stop: 09/21/17 20:12 Diphtheria/Tetanus/Acell Pertussis (Adacel) 0.5 ml IM .ONCE ONE Stop: 09/21/17 20:12 Labs: Laboratory Tests 09/21/17 09/21/17 Range/Units 19:10 19:10 WBC 10.31 (4.0-11.0) K/uL RBC 4.81 (4.30-5.90) M/uL Hgb 14.2 (12.0-16.0) g/dL Hct 40.5 (36.0-46.0) % MCV 84.2 (80.0-98.0) fL MCH 29.5 (27.0-32.0) pg MCHC 35.1 (31.0-37.0) g/dL RDW Std Deviation 38.9 (28.0-62.0) fl RDW Coeff of Jimmie 13 (11.0-15.0) % Plt Count 267 (150-400) K/uL MPV 9.10 (7.40-12.00) fL Neut % (Auto) 89.8 H (48.0-80.0) % Lymph % (Auto) 6.7 L (16.0-40.0) % Evans % (Auto) 3.3 (0.0-15.0) % Eos % (Auto) 0.1 (0.0-7.0) % Baso % (Auto) 0.1 (0.0-1.5) % Neut # (Auto) 9.3 H (1.4-5.7) K/uL Lymph # (Auto) 0.7 (0.6-2.4) K/uL Evans # (Auto) 0.3 (0.0-0.8) K/uL Eos # (Auto) 0.0 (0.0-0.7) K/uL Baso # (Auto) 0.0 (0.0-0.1) K/uL Nucleated RBC % 0.0 /100WBC Nucleated RBCs # 0 K/uL Sodium 137 (136-145) mmol/L Potassium 3.9 (3.5-5.1) mmol/L Chloride 102 (98-107) mmol/L Carbon Dioxide 25.0 (21.0-32.0) mmol/L BUN 13 (7.0-18.0) mg/dL Creatinine 1.0 (0.6-1.0) mg/dL Est Cr Clr Drug Dosing TNP Estimated GFR (MDRD) > 60.0 ml/min Glucose 111 H (74-106) mg/dL Calcium 8.6 (8.5-10.1) mg/dL Total Bilirubin 0.4 (0.2-1.0) mg/dL AST 19 (15-37) IU/L ALT 19 (14-63) IU/L Alkaline Phosphatase 69 (46-116) U/L Total Protein 7.0 (6.4-8.2) g/dL Albumin 3.9 (3.4-5.0) g/dL Globulin 3.1 (2.0-3.5) g/dL Albumin/Globulin Ratio 1.3 (1.3-2.8) Meds: Medications Generic Name Dose Route Start Last Admin Trade Name Freq PRN Reason Stop Dose Admin Bacitracin 1 dose 09/21/17 20:11 Bacitracin Oint 1 Gm TOP 09/21/17 20:12 ONETIME ONE Diphtheria/Tetanus/Acell Pertussis 0.5 ml 09/21/17 20:11 Adacel IM 09/21/17 20:12 .ONCE ONE Departure - Departure Time of Disposition: 20:12 Disposition: Home, Self-Care 01 Condition: Good Clinical Impression: Seizure-like activity - Discharge Information Instructions: Seizure, Adult Referrals: PCP,None [Primary Care Provider] - Forms: ED Department Discharge Additional Instructions: The following information is given to patients seen in the emergency department who are being discharged to home. This information is to outline your options for follow-up care. We provide all patients seen in our emergency department with a follow-up referral. The need for follow-up, as well as the timing and circumstances, are variable depending upon the specifics of your emergency department visit. If you don't have a primary care physician on staff, we will provide you with a referral. We always advise you to contact your personal physician following an emergency department visit to inform them of the circumstance of the visit and for follow-up with them and/or the need for any referrals to a consulting specialist. The emergency department will also refer you to a specialist when appropriate. This referral assures that you have the opportunity for followup care with a specialist. All of these measure are taken in an effort to provide you with optimal care, which includes your followup. Under all circumstances we always encourage you to contact your private physician who remains a resource for coordinating your care. When calling for followup care, please make the office aware that this follow-up is from your recent emergency room visit. If for any reason you are refused follow-up, please contact the [facility] emergency department at and asked to speak to the emergency department charge nurse. SHe had a seizure Please follow-up with Dr. Zarate Call for an appointment [facility] - Neurology Professional [address], [address] [place] [address] Return to the emergency room as directed - My Orders Last 24 Hours: My Active Orders 09/21/17 18:41 Head wo Cont [CT] Stat 09/21/17 19:10 COMPREHENSIVE METABOLIC PN,CMP [CHEM] Stat PROLACTIN [CHEM] Stat 09/21/17 20:11 Vaccines to be Administered [RC] PER UNIT ROUTINE Bacitracin [Bacitracin Oint 1 GM] 1 dose TOP ONETIME ONE Diphth,Pertuss(Acell),Tet Vac [Adacel] 0.5 ml IM .ONCE ONE - Assessment/Plan Last 24 Hours: My Active Orders 09/21/17 18:41 Head wo Cont [CT] Stat 09/21/17 19:10 COMPREHENSIVE METABOLIC PN,CMP [CHEM] Stat PROLACTIN [CHEM] Stat 09/21/17 20:11 Vaccines to be Administered [RC] PER UNIT ROUTINE Bacitracin [Bacitracin Oint 1 GM] 1 dose TOP ONETIME ONE Diphth,Pertuss(Acell),Tet Vac [Adacel] 0.5 ml IM .ONCE ONE
[2017-09-21 19:55] LABS: CHLORIDE,CL 102 mmol/L (98-107); SODIUM,NA 137 mmol/L (136-145)
[2017-09-21] MEDS ORDERED: Diphtheria,Pertussis(Acell),Tetanus Vaccine 0.5 ML Syringe IM ONE (20:11)
[2017-09-21] MEDS ORDERED: Bacitracin Oint 1 GM U/D Packet TOP ONE (20:11)
[2017-09-21] MEDS ORDERED: Metoclopramide 10 MG/2 ML SDV ONE (22:43)
[2017-09-21 23:51] VITALS: BP 109/71
--- NOTE | 2017-09-22 15:18 | CT ---
EXAM DATE: 09/21/17 PATIENT'S AGE: 27 Patient: ANNIE BELTRE Facility: [place], [place] Site . Site : 1990 Study: CT Head [id number]/[id number] 7:43:43 PM Ordering Physician: Doctor Floyd Final Report: INDICATION: Possible seizure TECHNIQUE: CT head without contrast. COMPARISON: July 28, 2017 FINDINGS: CSF spaces: Within normal limits for age. Brain parenchyma: The tatum-white differentiation is normal. No sign of mass, hemorrhage, or midline shift. Skull base and calvarium: The visualized paranasal sinuses and mastoid air cells demonstrate no acute or significant findings. The visualized orbits are grossly unremarkable. No skull fractures. IMPRESSION: Unremarkable noncontrast head CT. Please note that all CT scans at this facility use dose modulation, iterative reconstruction, and/or weight-based dosing when appropriate to reduce radiation dose to as low as reasonably achievable. Dictated by Annette Villavicencio MD @ Sep 21 2017 8:05PM (Electronic Signature) Report Signed by Proxy. MTDD
== END 2017-09-21 20:30 | disposition home or self-care (01) ==
LOC: MW.ED 18:20
DX: R56.9 Unspecified convulsions (principal); Z23 Encounter for immunization
CPT/HCPCS: 36415; 70450; 70450-26; 80053; 84146; 85025; 90471; 90715; 99285-25

== ENCOUNTER 2017-09-21 22:48 | Observation (INO) | payer OTHER ==
[2017-09-21] MEDS ORDERED: Metoclopramide 10 MG/2 ML SDV IV ONE (22:56)
--- NOTE | 2017-09-21 22:56 | EDM.PDOC ---
ED HPI GENERAL MEDICAL PROBLEM - General Chief Complaint: Neurological Problem Stated Complaint: SEIZURE Time Seen by Provider: 09/21/17 22:56 Source of Information: Reports: Patient History Limitations: Reports: No Limitations - History of Present Illness INITIAL COMMENTS - FREE TEXT/NARRATIVE: MyHISTORY AND PHYSICAL: History of present illness: 27-year-old female sending to emergency department by ambulance secondary to generalized tonic clonic seizure. Patient had been seen here earlier today for 2 episodes of seizure-like activity. At that time CT, CMP, CBC, TSH, prolactin, and all other electrolytes were unremarkable. There was a CT of the head which was unremarkable as well. Patient was discharged with follow-up. Patient states that she went home and believes she had another seizure as she woke up on the floor. Family called EMS and she was brought here. As per EMS patient did have a prolonged postictal state and was confused as to what happened as well as where she was at area on arrival at emergency department patient was alert and oriented 3 but having some nausea as well as episodes of vomiting. She was given 10 mg IV Reglan which seemed to help. In addition I gave her 1 L of normal saline and started her on 500 mg of Keppra IV for seizure prophylaxis. Secondary to the above I did call hospitalist Dr. Ordonez, who accepted the patient for observation for new onset seizures. Of note the patient first had seizure activity on 07/28/17. She was seen by Dr. Zarate, neurologist on as well as MRI was taken at that time. She also followed up with Olive Lobo on 08/11/17. She had no future seizure-like activity until today 09/21/17. She was not started on antiseizure medication prior. Review of systems: As per history of present illness and below otherwise all systems reviewed and negative. Past medical history: As per history of present illness and as reviewed below otherwise noncontributory. Surgical history: As per history of present illness and as reviewed below otherwise noncontributory. Social history: No reported history of drug or alcohol abuse. Family history: As per history of present illness and as reviewed below otherwise noncontributory. Physical exam: HEENT: Atraumatic, normocephalic, pupils reactive, negative for conjunctival pallor or scleral icterus, mucous membranes moist, throat clear, neck supple, nontender, trachea midline. Lungs: Clear to auscultation, breath sounds equal bilaterally, chest nontender. Heart: S1S2, regular, negative for clicks, rubs, or JVD. Abdomen: Soft, nondistended, nontender. Negative for masses or hepatosplenomegaly. Negative for costovertebral tenderness. Pelvis: Stable nontender. Genitourinary: Deferred. Rectal: Deferred. Extremities: Atraumatic, negative for cords or calf pain. Neurovascular unremarkable. Neuro: Awake, alert, oriented. Cranial nerves II through XII unremarkable. Cerebellum unremarkable. Motor and sensory unremarkable throughout. Exam nonfocal. Skin: Mild excoriations she should institute the dorsal aspect of the feet on medial aspects. Diagnostics: See previous labs drawn on same day Therapeutics: 1 L normal saline, Reglan 10 mg IV 1 Keppra 500 mg IV twice a day Impression: Acute witnessed generalized tonic-clonic seizure with prolonged postictal stage Plan: please see H&P above. Patient was admitted for observation and started on Keppra IV. Dr. Ordonez attending Definitive disposition and diagnosis as appropriate pending reevaluation and review of above. denies pain Pain Score (Numeric/FACES): 0 - Related Data Allergies Allergy/AdvReac Type Severity Reaction Status Date / Time No Known Allergies Allergy Verified 09/21/17 22:56 Home Meds: Home Meds ALPRAZolam [Alprazolam ODT] 0.5 mg PO ASDIRECTED PRN 09/21/17 [History] Norethindrone [Marcia] 0.35 mg PO DAILY 09/21/17 [History] Past Medical History - Past Health History Medical/Surgical History: Denies Medical/Surgical History HEENT History: Reports: None Cardiovascular History: Reports: None Respiratory History: Reports: None Gastrointestinal History: Reports: None Genitourinary History: Reports: None 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 History: Reports: None Neurological History: Reports: None Psychiatric History: Reports: None Endocrine/Metabolic History: Reports: None Hematologic History: Reports: None Immunologic History: Reports: None Oncologic (Cancer) History: Reports: None Dermatologic History: Reports: None - Past Surgical History Female Surgical History: Reports: Section Social & Family History - Family History Family Medical History: Noncontributory - Caffeine Use Caffeine Use: Reports: Coffee ED ROS GENERAL - Review of Systems Review Of Systems: See Below ED EXAM, GENERAL - Physical Exam Exam: See Below Course - Vital Signs Last Recorded V/S: Last Vital Signs Temp 97 F 09/21/17 22:50 Pulse 109 H 09/21/17 22:50 Resp 18 09/21/17 22:50 BP 117/63 09/21/17 22:50 Pulse Ox 98 09/21/17 22:50 - Orders/Labs/Meds Orders: Active Orders 24 hr Category Date Time Status Sodium Chloride 0.9% [Normal Saline] 1,000 ml Med 09/21/17 22:57 Active IV .Bolus levETIRAcetam [Keppra] 500 mg Med 09/21/17 23:45 Ordered Dextrose 5% in Water 100 ml IV Q12H Medication Orders Sodium Chloride (Normal Saline) 1,000 mls @ 999 mls/hr IV .Bolus ONE Stop: 09/21/17 23:57 Last Admin: 09/21/17 23:04 Dose: 999 mls/hr Meds: Medications Generic Name Dose Route Start Last Admin Trade Name Freq PRN Reason Stop Dose Admin Sodium Chloride 1,000 mls @ 999 mls/hr 09/21/17 22:57 09/21/17 23:04 Normal Saline IV 09/21/17 23:57 999 mls/hr .Bolus ONE Administration Discontinued Medications Generic Name Dose Route Start Last Admin Trade Name Freq PRN Reason Stop Dose Admin Metoclopramide HCl 10 mg 09/21/17 22:56 09/21/17 23:04 Reglan IV 09/21/17 22:57 10 mg ONETIME ONE Administration Departure - Departure Time of Disposition: 23:48 Disposition: Admitted As Inpatient 66 Condition: Good, Fair Clinical Impression: New onset seizure - Discharge Information Referrals: PCP,None [Primary Care Provider] - Forms: ED Department Discharge - My Orders Last 24 Hours: My Active Orders 09/21/17 22:57 Sodium Chloride 0.9% [Normal Saline] 1,000 ml IV .Bolus 09/21/17 23:45 levETIRAcetam [Keppra] 500 mg Dextrose 5% in Water 100 ml IV Q12H - Assessment/Plan Last 24 Hours: My Active Orders 09/21/17 22:57 Sodium Chloride 0.9% [Normal Saline] 1,000 ml IV .Bolus 09/21/17 23:45 levETIRAcetam [Keppra] 500 mg Dextrose 5% in Water 100 ml IV Q12H
[2017-09-21] MEDS ORDERED: Sodium Chloride 0.9% 1,000 ML IV ONE (22:57)
[2017-09-22] MEDS ORDERED: Ondansetron 4 MG/2 ML SDV IVPUSH PRN (01:05)
[2017-09-22] MEDS ORDERED: LORazepam 2 MG/ML SDV IVPUSH PRN (01:05)
[2017-09-22] MEDS: Sodium Chloride 0.9% 1,000 ML IV SCH ×2 (01:55→09:26)
--- NOTE | 2017-09-22 08:58 | PCM.HP ---
H&P History of Present Illness - General Date of Service: 09/22/17 Admit Problem/Dx: Admission Diagnosis/Problem Admission Diagnosis/Problem Seizure Source of Information: Patient History Limitations: Reports: No Limitations - History of Present Illness Initial Comments - Free Text/Narative: This 27 year old female with recent hx of new onset seizures presented to the ED last evening twice due to seizure activity. She doesn't remember much from the day, but reports feeling very tired and went to lay down in the evening and generalized tonic clonic seizure activity was noted by . This seizure last a couples minutes and then stopped. EMS was called, where she had another seizure with them. She was seen in the ED and discharged home. She returned a few hours later after another seizure was witnessed by . A prolonged postictal state noted after seizure by EMS. She denies any recent alcohol use or recreational drug use. Her first seizure was noted July 28 2017 and was seen by Dr. Zarate 2017. She had work up with MRI and EEG, which after reviewing records, were found to be normal. She was not started on medication at that time, but encouraged to monitor for seizure activity and if they re-occur come to ED or clinic. In the ED, first visit, labwork all within normal limits. Head CT negative. Keppra 500 mg IV given in the ED. She was admitted observation for re- occurrence of seizures. denies pain Pain Score (Numeric/FACES): 0 - Related Data Allergies/Adverse Reactions: Allergies Allergy/AdvReac Type Severity Reaction Status Date / Time No Known Allergies Allergy Verified 09/22/17 01:05 Home Medications: Home Meds ALPRAZolam [Alprazolam ODT] 0.5 mg PO ASDIRECTED PRN 09/21/17 [History] Norethindrone [Marcia] 0.35 mg PO DAILY 09/21/17 [History] levETIRAcetam [Keppra] 500 mg PO BID #60 tablet 09/22/17 [Rx] Past Medical History - Past Health History Medical/Surgical History: Denies Medical/Surgical History HEENT History: Reports: None Cardiovascular History: Reports: None. Denies: CAD, High Cholesterol, Hypertension, [place] Respiratory History: Reports: None. Denies: Asthma, COPD Gastrointestinal History: Reports: None. Denies: GI Bleed Genitourinary History: Reports: None. 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: Musculoskeletal History: Reports: None Neurological History: Reports: Seizure (First 07/28/2017, the x 3 on 09/21/2017) Psychiatric History: Reports: Anxiety Endocrine/Metabolic History: Reports: None Hematologic History: Reports: None Immunologic History: Reports: None Oncologic (Cancer) History: Reports: None Dermatologic History: Reports: None - Infectious Disease History Infectious Disease History: Reports: None - Past Surgical History Head Surgeries/Procedures: Reports: None Female Surgical History: Reports: Section Social & Family History - Family History Family Medical History: Noncontributory Neurological: Reports: Other (See Below) Other Neurological Family History: Brother had febrile seizure as a child once. Also had a cousin and a niece that had febrile seizure - Tobacco Use Smoking Status *Q: Never Smoker - Caffeine Use Caffeine Use: Reports: Coffee - Alcohol Use Alcohol Use History: No Date of Last Drink: 09/21/17 Time of Last Drink: 16:00 - Recreational Drug Use Recreational Drug Use: No - Living Situation & Occupation Living situation: Reports: Occupation: Employed H&P Review of Systems - Review of Systems: Review Of Systems: See Below General: Reports: Fatigue (reports fatigue yesterday and now continues today.). Denies: Fever, Chills, Malaise, Weakness HEENT: Reports: No Symptoms. Denies: Headaches, Sinus Congestion, Sore Throat, Vertigo Pulmonary: Reports: No Symptoms. Denies: Shortness of Breath Cardiovascular: Reports: No Symptoms. Denies: Chest Pain Gastrointestinal: Reports: No Symptoms. Denies: Abdominal Pain, Black Stool, Bloody Stool, Nausea, Vomiting Genitourinary: Reports: No Symptoms. Denies: Dysuria, Frequency, Burning Musculoskeletal: Reports: No Symptoms Skin: Reports: No Symptoms Psychiatric: Denies: Confusion, Anxiety Neurological: Reports: Seizure (yesterday evening prior to ED was last seizure. nothing overnight. ) Hematologic/Lymphatic: Reports: No Symptoms Immunologic: Reports: No Symptoms Exam - Exam Exam: See Below - Vital Signs Vital Signs: Last Vital Signs Temp 98 F 09/22/17 07:33 Pulse 79 09/22/17 07:33 Resp 16 09/22/17 07:33 BP 101/61 09/22/17 07:33 Pulse Ox 96 09/22/17 07:33 Weight: 59.693 kg - Exam General: Alert, Oriented, Cooperative HEENT: Conjunctiva Clear, Mucosa Moist & [place], Normal Nasal Septum, Posterior Pharynx Clear Neck: Supple, Trachea Midline, 2 Lungs: Clear to Auscultation, Normal Respiratory Effort Cardiovascular: Regular Rate, Regular Rhythm GI/Abdominal Exam: Normal Bowel Sounds, Soft, Non-Tender, No Organomegaly, No Distention, No Abnormal Bruit, No Mass, Pelvis Stable Back Exam: Normal Inspection, Full Range of Motion, NT Extremities: Normal Inspection, Normal Range of Motion, Non-Tender, No Pedal Edema, Normal Capillary Refill Neuro Extensive - Mental Status: Alert, Oriented x3, Normal Mood/Affect Neuro Extensive - Motor, Sensory, Reflexes: CN II-XII Intact Psychiatric: Alert, Normal Affect, Normal Mood - Problem List (1) Seizure SNOMED Code(s): 88549436 ICD Code: R56.9 - UNSPECIFIED CONVULSIONS Status: Acute Current Visit: Yes Problem List Initiated/Reviewed/Updated: Yes Orders Last 24hrs: Active Orders 24 hr Category Date Time Status Admission Status [Patient Status] [ADT] Routine ADT 09/22/17 23:59 Active Change Admitting Physician [ADT] Stat ADT 09/21/17 23:59 Ordered EKG 12 Lead [EKG Documentation Completion] [RC] STAT Care 09/21/17 18:21 Active Regular Diet [DIET] Diet 09/22/17 Breakfast Active LORazepam [Ativan] Med 09/22/17 01:05 Active 1 mg IVPUSH Q3H PRN Ondansetron [Zofran] Med 09/22/17 01:05 Active 4 mg IVPUSH Q3H PRN Sodium Chloride 0.9% [Normal Saline] 1,000 ml Med 09/22/17 01:15 Active IV ASDIRECTED levETIRAcetam [Keppra] 500 mg Med 09/21/17 23:45 Active Dextrose 5% in Water 100 ml IV Q12H Medication Orders Levetiracetam 500 mg/ Dextrose (/Water) 105 mls @ 420 mls/hr IV Q12H TREVER Last Admin: 09/22/17 00:14 Dose: 420 mls/hr Sodium Chloride (Normal Saline) 1,000 mls @ 125 mls/hr IV ASDIRECTED TREVER Last Admin: 09/22/17 01:55 Dose: 125 mls/hr Lorazepam (Ativan) 1 mg IVPUSH Q3H PRN PRN Reason: Seizures Ondansetron HCl (Zofran) 4 mg IVPUSH Q3H PRN PRN Reason: Nausea/Vomiting Assessment/Plan Comment:: This 27 year old female admitted with seizure activity 1. Seizures: Re-occurrence of seizures. Keppra given in ED, no further seizure activity. Will continue Keppra 500 mg PO BID for now and arrange follow up with Dr Zarate. Sil is tired today and worn out but eager to be discharged home. at bedside. Discharge Plan: Seizures Sil was admitted and monitored overnight after being given Keppra for seizures. First seizure was noted 07/28/2017, then with 3 yesterday 09/21/2017. Head CT negative. We arranged follow up appointment with Dr Zarate October 22 2017. She is currently unavailable to see patient. Family not happy with this date and requested a sooner date, with Dr Zarate gone we are unable to arranged this. Family requested appointment to be made in [place] if available sooner, there was a date of October [address] Sosa, which family wanted and this was arranged. Encouraged to have records sent to [facility] for them to review prior to appointment. Family reports they are going to try call Dr Zarate when she returns next week to arrange a sooner date. Will discharge home today. Keppra 500 mg BID started and to be continued. Neurology follow up arranged. She is to remain not driving as previous instructions from Dr Zarate, which her and her verbalize understanding. She is to return to the ED or clinic if seizure activity reoccurs.
[2017-09-22] MEDS ORDERED: levETIRAcetam 500 MG Tab PO SCH (09:00)
[2017-09-22] MEDS ORDERED: Acetaminophen 325 MG Tab PO PRN (11:18)
[2017-09-22 11:56] VITALS: BP 109/65
== END 2017-09-22 15:10 | disposition home or self-care (01) ==
LOC: MW.ED 22:48 → MW.MS 23:49
PROVIDERS: ADMIT Internal Medicine; ATTEND Internal Medicine
DX: R56.9 Unspecified convulsions (principal); F41.9 Anxiety disorder, unspecified; Z79.899 Other long term (current) drug therapy
CPT/HCPCS: 93005; 96361; 96374; 96375; 99285-25; A9270-GY; G0378; J1953; J2765; J7040; J7060